=== PATIENT | male | born 1985 | race Caucasian/White ===

== ENCOUNTER 2023-07-28 08:14 | Emergency (ER) | payer OTHER, SELFPAY ==
[2023-07-28 08:29] VITALS: BP 132/81; PULSE 77; RESP 16; TEMP 37; O2SAT 100
--- NOTE | 2023-07-28 08:49 | ED.URI ---
HPI - URI/Sore Throat General Chief Complaint: Upper Respiratory Infection Stated Complaint: Cough Time Seen by Provider: 07/28/23 08:49 Source: patient Mode of arrival: ambulatory Limitations: no limitations History of Present Illness HPI Narrative: 38 yo M presents with c/o cough for 5 days. States no other symptoms . Afebrile. Denies CP/SOB. Not taking any OTC meds to treat symptoms. Pt's going out of town tomorrow and wants to make sure gonna be ok watching his kids while sick while shes gone . All systems reviewed and negative except as noted above. Related Data Home Medications Medication Instructions Recorded Confirmed cetirizine 10 mg tablet (Zyrtec) 10 mg PO DAILY 07/28/23 07/28/23 multivitamin 1 tablet PO DAILY 07/28/23 07/28/23 Allergies Allergy/AdvReac Type Severity Reaction Status Date / Time No Known Allergies Allergy Verified 07/28/23 08:54 Review of Systems Review of Systems: CONSTITUTIONAL: Denies fever, chills, or sweats. Reports fatigue. EYES: Denies visual changes, redness, or discharge. ENT: Denies rhinorrhea, congestion, sore throat, or otalgia. CARDIOVASCULAR: Denies chest pain, palpitations, or edema. RESPIRATORY: Reports cough. Denies dyspnea. GASTROINTESTINAL: Denies abdominal pain, nausea, vomiting, or diarrhea. GENITOURINARY: Denies dysuria or hematuria. SKIN: Denies rash or itching. MUSCULOSKELETAL: Denies back pain, joint pain, or myalgia. NEUROLOGIC: Denies headache, numbness, or weakness. PSYCHIATRIC: Denies anxiety or depression. All other systems reviewed are negative, except as documented in HPI. PMFSH Comments At time of signature, agree with nursing past medical, surgical, social and family history. There is no relevant family history pertinent to the presenting complaint. Exam Narrative: GENERAL: This is a well-nourished, well-developed patient, in no apparent distress. HEAD: normocephalic, atraumatic. EYES: PERRL. Sclera clear/white. Vision is grossly intact. EARS: External ears normal, auditory canals clear and without drainage, TMs normal without perforation. Hearing grossly intact. NOSE: External nose normal with no obvious nasal discharge, nares without redness, no rhinorrhea. THROAT: Mucous membranes moist, posterior pharynx clear. NECK: Neck supple, non-tender without lymphadenopathy, masses or thyromegaly. CARDIOVASCULAR: Regular rate and rhythm without murmurs, gallops, or rubs. RESPIRATORY: Clear to auscultation. Breath sounds equal bilaterally. No wheezes, rales, or rhonchi. SKIN: warm, Dry, intact with no suspicious lesions or rash, good texture and turgor. NEURO: awake, alert, and oriented to person, place and time. There were no obvious focal neurologic abnormalities. EXTREMITIES: No joint tenderness, effusion, or edema noted. Course Course Level of Care: Express Care Visit Vital Signs Vital signs: Vital Signs Temperature 37.0 C 07/28/23 08:29 Pulse Rate 77 07/28/23 08:29 Respiratory Rate 16 07/28/23 08:29 Blood Pressure 132/81 07/28/23 08:29 Pulse Oximetry 100 07/28/23 08:29 Temperature 37.0 C 07/28/23 08:29 Pulse Rate 77 07/28/23 08:29 Respiratory Rate 16 07/28/23 08:29 Blood Pressure 132/81 07/28/23 08:29 Pulse Oximetry 100 07/28/23 08:29 Reviewed MDM - URI/Sore Throat MDM Narrative Medical decision making narrative: Patient is aware of diagnosis, understands and agrees to treatment plan. Anticipatory guidance given. Patient agrees to follow-up as directed and is aware of reasons to seek care at the emergency department. Portions of this record may have been created with voice recognition software Differential Diagnosis Differential diagnosis: Likely upper respiratory infection and viral infection Discharge Plan Discharge Clinical Impression: Viral URI with cough Patient Disposition: Home, Self-Care Condition: Stable Instructions: Acute Cough (ED) Additional I
== END 2023-07-28 09:03 | disposition home or self-care (01) ==
PROVIDERS: Emergency Provider Nurse Practitioner Family; PCP Internal Medicine
DX: J06.9 Acute upper respiratory infection, unspecified (principal); Z86.16 Personal history of COVID-19
CPT/HCPCS: 99213; G0463

== ENCOUNTER 2023-08-15 15:49 | Emergency (ER) | payer OTHER, SELFPAY ==
--- NOTE | ~2023-08-15 | XR_ITS ---
EXAMINATION: XR chest 2V DATE: 08/15/2023 16:23 INDICATION: 3 weeks of cough TECHNIQUE: PA and lateral views of the chest were obtained. COMPARISON: None FINDINGS: The lungs are clear with no focal airspace opacities, pulmonary edema, pleural effusion or pneumothor ax. The cardiomediastinal silhouette is normal. Visualized bones and soft tissues are unremarkable. IMPRESSION: 1. No acute cardiopulmonary disease. Reviewed, dictated and finalized at location A. WAITER OPERATOR
[2023-08-15 16:04] VITALS: BP 139/88; PULSE 63; RESP 16; TEMP 36.9; O2SAT 100
--- NOTE | 2023-08-15 16:33 | ED.URI ---
HPI - URI/Sore Throat General Chief Complaint: Upper Respiratory Infection Stated Complaint: COUGH/CONGESTION Source: patient and RN notes reviewed History of Present Illness HPI Narrative: 38 yo M presents to urgent care with complaitns of a wet cough and chest congestion for a few days. Pt states he has had a cough and other URI symptoms for the last few weeks and was seen here initially. Pt was dx with a virus at that time and then went to his ENT where he received cefuroxime for a chest infection. Pt states he is on Day 5 of the Abx and is worried he could have pneumonia. Pt states his actual cough has improved since 3 weeks ago. Denies any fevers, chills, SOB, chest pain, N/V/D. Related Data Home Medications Medication Instructions Recorded Confirmed cetirizine 10 mg tablet (Zyrtec) 10 mg PO DAILY 07/28/23 08/15/23 multivitamin 1 tablet PO DAILY 07/28/23 08/15/23 cefuroxime axetil 250 mg tablet 250 mg PO DAILY 08/15/23 08/15/23 Allergies Allergy/AdvReac Type Severity Reaction Status Date / Time No Known Allergies Allergy Verified 08/15/23 15:58 Review of Systems Review of Systems: CONSTITUTIONAL: Denies fever, chills, or sweats. EYES: Denies visual changes, redness, or discharge. ENT: Denies otalgia and sore throat CARDIOVASCULAR: Denies chest pain, palpitations, or edema. RESPIRATORY: chest congestion GASTROINTESTINAL: Denies abdominal pain, nausea, vomiting, or diarrhea. GENITOURINARY: Denies dysuria or hematuria. SKIN: Denies rash or itching. MUSCULOSKELETAL: Denies back pain, joint pain, or myalgia. NEUROLOGIC: Denies headache, numbness, or weakness. Pertinent positives per HPI. PMFSH Comments At the time of my signature, I reviewed and agree with the nursing past medical, surgical, social, and family history. There is no relevant family history pertinent to the patient complaint. Exam Narrative: GENERAL: This is a well-nourished, well-developed patient, in no apparent distress. HEAD: normocephalic, atraumatic. EYES: Sclera clear/white. Vision is grossly intact. EARS: External ears normal, auditory canals clear and without drainage, TMs normal without perforation. Hearing grossly intact. NOSE: External nose normal with no obvious nasal discharge, nares without redness, no rhinorrhea. THROAT: Mucous membranes moist, posterior pharynx clear. NECK: Neck supple, non-tender without lymphadenopathy, masses or thyromegaly. CARDIOVASCULAR: Regular rate and rhythm without murmurs, gallops, or rubs. RESPIRATORY: Clear to auscultation with the exception of some congestion. Breath sounds equal bilaterally. GASTROINTESTINAL: Abdomen soft, non-tender, nondistended. Bowel sounds are active. No hepato-splenomegaly, or palpable masses. No guarding. SKIN: warm, intact with no suspicious lesions or rash, good texture and turgor. NEURO: awake, alert, and oriented to person, place and time. There were no obvious focal neurologic abnormalities. Course Course Level of Care: Express Care Visit Vital Signs Vital signs: Vital Signs Temperature 98.4 F 08/15/23 16:04 Pulse Rate 63 08/15/23 16:04 Respiratory Rate 16 08/15/23 16:04 Blood Pressure 139/88 08/15/23 16:04 Pulse Oximetry 100 08/15/23 16:04 Temperature 98.4 F 08/15/23 16:04 Pulse Rate 63 08/15/23 16:04 Respiratory Rate 16 08/15/23 16:04 Blood Pressure 139/88 08/15/23 16:04 Pulse Oximetry 100 08/15/23 16:04 Reviewed MDM - URI/Sore Throat MDM Narrative Medical decision making narrative: May use Mucinex at home as directed. Get plenty of fluids and increase your Vitamin C. Use a humidifier in the bedroom. Follow up with your plug overwrap machine tender next week. Go to the ER with any new or worsening symptoms. Differential Diagnosis Differential diagnosis: Likely upper respiratory infection, sinusitis, viral infection, bronchitis and other (pna) Imaging Data Radiologist's impression: [facility] [place] [address]
== END 2023-08-15 16:56 | disposition home or self-care (01) ==
PROVIDERS: Emergency Provider Nurse Practitioner Family; PCP Internal Medicine
DX: B34.9 Viral infection, unspecified (principal); Z86.16 Personal history of COVID-19
CPT/HCPCS: 71046; 99213; G0463

== ENCOUNTER 2025-07-14 16:11 | Emergency (ER) | payer OTHER, SELFPAY ==
--- NOTE | ~2025-07-14 | CT_ITS ---
EXAMINATION: CT lumbar spine wo con COMPARISON: None HISTORY: Low back pain TECHNIQUE: Axial images were obtained through the spine without IV contrast. Coronal, sagittal reconstruction images were obtained from the axial views. CT scan performed using dose optimization techniques including the following automated exposure control; adjustment of mA and/or kV; use of iterative reconstruction technique. Automatic exposure control was used to reduce radiation dose. Permanent radiation dose record is archived to PACS. FINDINGS: The vertebral heights are intact. No fracture or subluxation. The disc heights are intact. Soft tissues unremarkable. Impression: No acute abnormality. Reviewed, dictated and finalized at location P. Impression: No acute abnormality.
[2025-07-14 16:03] VITALS: BP 146/74; PULSE 77; RESP 18; TEMP 37.3; O2SAT 100
[2025-07-14] MEDS: MORPHINE SULFATE (*CRX) 4 MG/ML INJ IV PUSH (16:42)
--- NOTE | 2025-07-14 16:54 | ED.BACK ---
HPI - Back Pain/Injury General Chief Complaint: Back Pain/Injury Stated Complaint: back pain Source: patient Mode of arrival: EMS Limitations: no limitations History of Present Illness HPI Narrative: This is a 40-year-old male, with no significant past medical history presents emergency department complaining of severe low back pain. The patient states earlier this week, he developed back soreness after lifting groceries and heavy objects. Today day at approximately 11:00 o'clock, the patient sneezed and developed severe midline low back pain. He denies loss of sensation in the groin, loss of bowel or bladder control or fevers. He states despite taking Flexeril his pain was not improved. He has no other complaints at this time. Related Data Home Medications ?Medication ?Instructions ?Recorded ?Confirmed ?Last Taken ?Type cetirizine 10 mg tablet (Zyrtec) 10 mg PO DAILY 07/28/23 08/15/23 Unknown History multivitamin 1 tablet PO DAILY 07/28/23 08/15/23 Unknown History cefuroxime axetil 250 mg tablet 250 mg PO DAILY 08/15/23 08/15/23 Unknown History Allergies Allergy/AdvReac Type Severity Reaction Status Date / Time No Known Allergies Allergy Verified 07/14/25 16:15 Review of Systems Review of Systems: All systems reviewed & are unremarkable except as noted in HPI and below PMFSH Past Medical History Medical History No significant past medical history Surgical History Surgical History No significant past surgical history Social History Social History Smoking status: Never smoker Alcohol intake: never Substance use: never Exam Narrative: GENERAL: Well-developed, well-nourished, and in no acute distress. HEAD: Normocephalic, atraumatic. EYES: PERRLA and EOMI. CHEST: Clear to auscultation. No respiratory distress. No wheezes rales or rhonchi HEART: Regular rate and rhythm. No murmur heard. Normal peripheral pulses. ABDOMEN: Soft, nontender, nondistended, normal active bowel sounds. BACK: Tender palpation in the midline back over L3-L5 without step-off or crepitus. Left paraspinal tenderness to palpation in the same region. No noted erythema, induration or purulent drainage. EXTREMITIES: Normal range of motion. No edema. SKIN: Warm, dry, no rash. NEURO: Alert and oriented x3. No focal deficit. Moving all 4 limbs spontaneously PSYCH: Normal mood and affect. Course Course Emergency Course: 18:58 - CT lumbar spine negative for fracture, obvious disc protrusion or spinal canal stenosis. I suspect lumbar paraspinal muscle strain as a cause of the patient's pain. After morphine and muscle relaxer, the patient had mild relief. He was given Toradol IV. Will discharge with NSAIDs, muscle relaxers, lidocaine patches and recommendation for rest and primary care follow-up. I discussed the findings and recommendations with the patient. Discussed return and emergency precautions including signs/symptoms of cauda equina and epidural abscess. The patient voiced understanding and agreement with the plan. All questions answered to his satisfaction. Vital Signs Vital signs: Vital Signs Temperature 99.1 F 07/14/25 16:03 Pulse Rate 77 07/14/25 16:03 Respiratory Rate 18 07/14/25 16:03 Blood Pressure 146/74 H 07/14/25 16:03 Pulse Oximetry 100 07/14/25 16:03 Oxygen Delivery Room Air 07/14/25 16:03 Temperature 99.1 F 07/14/25 16:03 Pulse Rate 73 07/14/25 18:52 Respiratory Rate 19 07/14/25 18:52 Blood Pressure 137/63 07/14/25 18:52 Pulse Oximetry 100 07/14/25 18:52 Oxygen Delivery Room Air 07/14/25 16:03 MDM - Back Pain/Injury MDM Narrative Medical decision making narrative: Plan: Imaging, pain control, reassess Differential Diagnosis Differential diagnosis: Likely lumbar radiculopathy, strain of lumbar region, discitis and other Discharge Plan Discharge Clinical Impression: Strain of lumbar region Qualifiers: Encounter type: initial encounter Qualified Code(s): S39.012A - Strain of muscle, fascia and tendon of lower back, initial encounter Acute low back pain Qualifiers: Back pain laterality: midline Sciatica presence: without sciatica Qualified Code(s): M54.50 - Low back pain, unspecified Patient Disposition: Home Condition: Stable Instructions: Antibiotic Form, Acute Low Back Pain (ED) Additional Instructions: You were seen in the emergency department. A CT scan of the back was not concerning for fracture or obvious disc protrusion. Your exam is not concerning for spinal cord compression. I recommend indomethacin, Tylenol, muscle relaxers, lidocaine patches and rest. If you develop loss of sensation in the groin, loss of bowel/bladder control, weakness/numbness in the legs, fevers with severe back pain, or if you have other emergent concerns for life, limb, or eyesight, return to the emergency department. Patient Language: Palauan Prescriptions: New indomethacin 25 mg capsule 25 mg PO TID Qty: 21 0RF Rx Instructions: administer with food or milk lidocaine 5 % adhesive patch,medicated 1 patch topical DAILY Qty: 30 0RF Rx Instructions: leave on most painful area for up to 12 hrs No Action cefuroxime axetil 250 mg tablet 250 mg PO DAILY multivitamin [Multi-Vitamin] Tablet 1 tablet PO DAILY cetirizine [Zyrtec] 10 mg Tablet 10 mg PO DAILY Follow-up/Referrals: Sofia,Guillermo Lester MD [Primary Care Provider] - 1 Week Time of Disposition: 18:58
--- OUTSIDE RECORDS SUMMARY | 2025-07-14 16:56 | XMS_ITS | Encounter Summary ---
Author Organization [facility] Address [address] [place] [address] Care Team Providers Care Automation Analyst Name Role Phone Guillermo Black MD Primary Care Provider [phone] Encounter Details Date Type Department Care Team (Late st Contact Info) Description 07/14/2025 Orders Only [facility] [address] [place] [address] Guillermo Black MD [address] [facility] [address] [place], [place] [id number] Social History Tobacco Use Types Packs/Day Years Used Date Smoking Tobacco: Never PHQ-2 Answer Date Recorded PHQ-2 Total Score (If total score is 3 or more points, staff should administer the PHQ-9) 0 09/23/2023 Sex and Gender Information Value Date Recorded Sex Assigned at Not on file Legal Sex Male 1:45 PM CDT Gender Identity Not on file Sexual Orientation Not on file documented as of this encounter Ordered Prescriptions Prescription Sig Dispense Quantity Refills Last Filled Start Date End Date cyclobenzaprine (FLEXERIL) 10 mg tablet Take 1 tablet (10 mg total) by mouth 3 (three) times a day as needed for muscle spasms 30 tablet 07/14/2025 09/12/2025 documented in this encounter Plan of Treatment Not on file documented as of this encounter Visit Diagnoses Not on filedocumented in this encounter Care Teams Automation Analyst Relationship Specialty Start Date End Date Guillermo Black MD PCP - General Internal Medicine 11/07/18 documented as of this encounter
--- OUTSIDE RECORDS SUMMARY | 2025-07-14 16:56 | XMS_ITS | Clinical Summary ---
Author Organization [facility] Address [address] Rogersn: [place] [address] Care Team Providers Care Furnace Installer Helper Name Role Phone Unavailable Primary Care Provider Unavailabl e Social History Tobacco Use Types Packs/Day Years Used Date Smoking Tobacco: Never Assessed Sex and Gender Information Value Date Recorded Sex Assigned at Not on file Legal Sex Male 5:17 PM CUFF [employer]NER Gender Identity Not on file Sexual Orientation Not on file Plan of Treatment Health Maintenance Due Date Last Done Comments DTAP/TDAP/TD VACCINES (1 - Tdap) 01/25/2004 HEPATITIS B VACCINES (1 of 3 - 19+ 3-dose series) 01/09 HPV VACCINES (1 - 3-dose SCDM series) 01/25/2012 INFLUENZA VACCINE (#1) 2025
--- NOTE | 2025-07-14 17:40 | PC.NURSE ---
Pt came to nurses station asking if pt could take a dose of his home Flexeril as she states it is time for his next dose. This RN got VORB from EDP that it was okay for pt to take his prescribed 10mg Flexeril
[2025-07-14] MEDS: KETOROLAC 30 MG/ML VIAL (*BKC) IV PUSH (18:19)
[2025-07-14 18:52] VITALS: BP 137/63; PULSE 73; RESP 19; O2SAT 100
== END 2025-07-14 19:23 | disposition home or self-care (01) ==
PROVIDERS: Emergency Provider Preventive Medicine Aerospace Medicine; PCP Internal Medicine
DX: S39.012A Strain of muscle, fascia and tendon of lower back, initial encounter (principal); X58.XXXA Exposure to other specified factors, initial encounter
CPT/HCPCS: 72131; 96374; 96375; 99284; J1885; J2270